=== PATIENT | male | born 1960 | race African-American/Black ===

== ENCOUNTER 2025-09-07 07:59 | Outpatient (CLI) | payer MEDICAID ==
[2025-09-07 08:30] LABS: Estimated GFR - POC 68.0
== END 2025-09-07 08:00 | disposition home or self-care (01) ==
LOC: CT 07:59
PROVIDERS: ATTEND Internal Medicine
DX: G47.33 Obstructive sleep apnea (adult) (pediatric) (principal); R26.0 Ataxic gait; Z98.890 Other specified postprocedural states; J34.1 Cyst and mucocele of nose and nasal sinus; J34.89 Other specified disorders of nose and nasal sinuses
CPT/HCPCS: 36415; 70496; 82565

== ENCOUNTER 2025-09-07 08:46 | Outpatient (CLI) | payer MEDICAID | END 2025-09-07 08:47 | disposition home or self-care (01) | LOC: BICRAD 08:46 | PROVIDERS: ATTEND Student in an Organized Health Care Education/Training Program | DX: M47.26 Other spondylosis with radiculopathy, lumbar region (principal) | CPT/HCPCS: 36415; 70496; 72100; 82565 ==